=== PATIENT | male | born 1970 | race Caucasian/White ===

== ENCOUNTER 2017-09-08 13:16 | Emergency (ER) | payer MEDICARE, MEDICAID ==
[2017-09-08 15:21] LABS: ABS Basophils 0.1 10^3/ul (0-0.2); ABS Eosinophils 0.3 10^3/ul (0-0.6); ABS Lymphocytes 2.2 10^3/ul (1.0-4.8); ABS Monocytes 0.8 10^3/ul (0-0.8); ABS Neutrophils 3.6 10^3/ul (1.5-7.7); ABS Nucleated RBC 0 10^3/ul; Eosinophil % 4.5 % (0-6); Hematocrit 45 % (42-52); Hemoglobin 15.3 g/dl (14.0-18.0); Lymphocyte % 31.9 % (25-47); Mean Corpuscular HGB Conc 34 g/dl (31-36); Mean Corpuscular Hemoglobin 31 pg (27-31); Mean Corpuscular Volume 90 fL (80-94); Mean Platelet Volume 7 um3 (7.4-10.4); Nucleated Red Blood Cells % 0; Platelet Count 237 10^3/ul (150-450); Red Cell Distribution Width 14 % (10.5-15); White Blood Count 6.9 10^3/ul (3.5-10.8)
[2017-09-08 15:29] LABS: INR 0.8 (0.77-1.02)
[2017-09-08 15:35] LABS: EGFR Non-African American 107.6 (>60)
--- NOTE | 2017-09-08 18:05 | RAD ---
INDICATION: Pain and swelling. COMPARISON: None TECHNIQUE: Duplex interrogation of the left upperextremity was performed. FINDINGS: Deep veins: The visualized jugular, subclavian, axillary, brachial, radial, and ulnar veins are patent. There is normal compressibility, augmentation, and phasic flow. Superficial veins: The basilic and cephalic veins are patent There are no findings of superficial thrombophlebitis. Soft tissues:There are no soft tissue abnormalities. IMPRESSION: Normal examination. No evidence of deep venous thrombosis
[2017-09-08] MEDS ORDERED: traMADol TAB* 50 MG PO ONE (18:21)
[2017-09-08 18:50] VITALS: BP 140/83
--- NOTE | 2017-09-08 22:11 | ED ---
Kenya Thorne Thomas, scribed for Sadiq Barnes MD on 09/08/17 at 1721 . Lower Extremity - HPI Summary HPI Summary: The patient is a 46 year old male complaining of bilateral swelling and pain in the lower extremities. His friend is present in the room. - History of Current Complaint Chief Complaint: EDExtremityLower Stated Complaint: POSSIBLE CELLULITIS Time Seen by Provider: 09/08/17 16:12 Hx Obtained From: Patient Onset of Pain: Hours Onset/Duration: Still Present Severity Currently: Moderate Pain Intensity: 10 Pain Scale Used: 0-10 Numeric Timing: Constant Associated Signs And Symptoms: Positive: Swelling, Other - pain in both feet - Allergies/Home Medications Allergies/Adverse Reactions: Allergies Allergy/AdvReac Type Severity Reaction Status Date / Time No Known Allergies Allergy Verified 12/02/13 13:51 PMH/Surg Hx/FS Hx/Imm Hx Endocrine/Hematology History: Reports: Hx Thyroid Disease Denies: Hx Anticoagulant Therapy, Hx Diabetes Cardiovascular History: Denies: Hx Hypertension Respiratory History: Denies: Hx Asthma Psychiatric History: Denies: Hx Eating Disorder Infectious Disease History: No Infectious Disease History: Denies: Hx Hepatitis, Hx Human Immunodeficiency Virus (HIV), Traveled Outside the [place] in Last 30 Days - Family History Known Family History: Positive: Other - Patient does not know his family history - Social History Alcohol Use: Rare Substance Use Type: Reports: None Smoking Status (MU): Current Every Day Smoker Review of Systems Negative: Epistaxis Positive: Edema - bilteral pedal edema, Other - pain in both feet All Other Systems Reviewed And Are Negative: Yes Physical Exam - Summary Physical Exam Summary: Appearance: The patient is well-nourished in no acute distress and in no acute pain. Skin: The skin is warm and dry and skin color reflects adequate perfusion. HEENT: ~The head is normocephalic and atraumatic. The pupils are equal and reactive. The conjunctivae are clear and without drainage. ~Nares are patent and without drainage. ~Mouth reveals moist mucous membranes and the throat is without erythema and exudate. ~The external ears are intact. The ear canals are patent and without drainage. The tympanic membranes are intact. Neck: the neck is supple with full range of motion and non-tender. There are no carotid bruits. ~There is no neck vein distension. Respiratory: Chest is non-tender. ~Lungs are clear to auscultation and breath sounds are symmetrical and equal. Cardiovascular: Heart is regular rate and rhythm. ~There is no murmur or rub auscultated. There is bilateral pedal edema and the left side is worse than the right.~~Pulses are symmetrical and equal. Abdomen: The abdomen is soft and non-tender. ~There are normal bowel sounds heard in all four quadrants and there is no organomegaly palpated. Musculoskeletal: There is no back tenderness noted. ~Extremities are non-tender with full range of motion. ~There is good capillary refill. ~There is no calf tenderness elicited. There are open sores on both feet. Neurological: Patient is alert and oriented to person, place and time. ~The patient has symmetrical motor strength in all four extremities. ~Cranial nerves are grossly intact. Deep tendon reflexes are symmetrical and equal in all four extremities. Psychiatric: The patient has an appropriate affect and does not exhibit any anxiety or depression. Triage Information Reviewed: Yes Vital Signs On Initial Exam: Initial Vitals Temp Pulse Resp BP Pulse Ox 98.9 F 88 16 145/90 100 09/08/17 13:23 09/08/17 13:23 09/08/17 13:23 09/08/17 13:23 09/08/17 13:23 Vital Signs Reviewed: Yes Diagnostics - Vital Signs Vital Signs Temp Pulse Resp BP Pulse Ox 09/08/17 13:23 98.9 F 88 16 145/90 100 - Laboratory Lab Results: Lab Results 09/08/17 09/08/17 09/08/17 Range/Units 15:00 15:00 15:00 WBC 6.9 (3.5-10.8) 10^3/ul RBC 5.00 (4.0-5.4) 10^6/ul Hgb 15.3 (14.0-18.0) g/dl Hct 45 (42-52) % MCV 90 (80-94) fL MCH 31 (27-31) pg MCHC 34 (31-36) g/dl RDW 14 (10.5-15) % Plt Count 237 (150-450) 10^3/ul MPV 7 L (7.4-10.4) um3 Neut % (Auto) 51.3 (38-83) % Lymph % (Auto) 31.9 (25-47) % [place] % (Auto) 11.3 H (1-9) % Eos % (Auto) 4.5 (0-6) % Baso % (Auto) 1.0 (0-2) % Absolute Neuts (auto) 3.6 (1.5-7.7) 10^3/ul Absolute Lymphs (auto) 2.2 (1.0-4.8) 10^3/ul Absolute Monos (auto) 0.8 (0-0.8) 10^3/ul Absolute Eos (auto) 0.3 (0-0.6) 10^3/ul Absolute Basos (auto) 0.1 (0-0.2) 10^3/ul Absolute Nucleated RBC 0 10^3/ul Nucleated RBC % 0 INR (Anticoag Therapy) 0.80 (0.77-1.02) Sodium 132 L (133-145) mmol/L Potassium 4.3 (3.5-5.0) mmol/L Chloride 98 L (101-111) mmol/L Carbon Dioxide 30 (22-32) mmol/L Anion Gap 4 (2-11) mmol/L BUN 16 (6-24) mg/dL Creatinine 0.78 (0.67-1.17) mg/dL Est GFR ( Amer) 138.4 (>60) Est GFR (Non-Af Amer) 107.6 (>60) BUN/Creatinine Ratio 20.5 H (8-20) Glucose 85 (70-100) mg/dL Lactic Acid (0.5-2.0) mmol/L Calcium 9.3 (8.6-10.3) mg/dL Magnesium 2.2 (1.9-2.7) mg/dL Total Bilirubin 0.40 (0.2-1.0) mg/dL AST 21 (13-39) U/L ALT 31 (7-52) U/L Alkaline Phosphatase 74 (34-104) U/L C-Reactive Protein 2.37 (< 5.00) mg/L Total Protein 7.0 (6.4-8.9) g/dL Albumin 4.4 (3.2-5.2) g/dL Globulin 2.6 (2-4) g/dL Albumin/Globulin Ratio 1.7 (1-3) 09/08/17 Range/Units 15:00 WBC (3.5-10.8) 10^3/ul RBC (4.0-5.4) 10^6/ul Hgb (14.0-18.0) g/dl Hct (42-52) % MCV (80-94) fL MCH (27-31) pg MCHC (31-36) g/dl RDW (10.5-15) % Plt Count (150-450) 10^3/ul MPV (7.4-10.4) um3 Neut % (Auto) (38-83) % Lymph % (Auto) (25-47) % [place] % (Auto) (1-9) % Eos % (Auto) (0-6) % Baso % (Auto) (0-2) % Absolute Neuts (auto) (1.5-7.7) 10^3/ul Absolute Lymphs (auto) (1.0-4.8) 10^3/ul Absolute Monos (auto) (0-0.8) 10^3/ul Absolute Eos (auto) (0-0.6) 10^3/ul Absolute Basos (auto) (0-0.2) 10^3/ul Absolute Nucleated RBC 10^3/ul Nucleated RBC % INR (Anticoag Therapy) (0.77-1.02) Sodium (133-145) mmol/L Potassium (3.5-5.0) mmol/L Chloride (101-111) mmol/L Carbon Dioxide (22-32) mmol/L Anion Gap (2-11) mmol/L BUN (6-24) mg/dL Creatinine (0.67-1.17) mg/dL Est GFR ( Amer) (>60) Est GFR (Non-Af Amer) (>60) BUN/Creatinine Ratio (8-20) Glucose (70-100) mg/dL Lactic Acid 0.7 (0.5-2.0) mmol/L Calcium (8.6-10.3) mg/dL Magnesium (1.9-2.7) mg/dL Total Bilirubin (0.2-1.0) mg/dL AST (13-39) U/L ALT (7-52) U/L Alkaline Phosphatase (34-104) U/L C-Reactive Protein (< 5.00) mg/L Total Protein (6.4-8.9) g/dL Albumin (3.2-5.2) g/dL Globulin (2-4) g/dL Albumin/Globulin Ratio (1-3) Result Diagrams: 09/08/17 15:00 09/08/17 15:00 Lab Statement: Any lab studies that have been ordered have been reviewed, and results considered in the medical decision making process. - Additional Comments Diagnostic Additional Comments: Ultrasound of Left Lower Extremity Interpreted by radiologist. Impression: Normal examination. No evidence of deep venous thrombosis Dr. Barnes has reviewed this report Lower Extremity Course/Dx - Course Course Of Treatment: Mr. New presented and it is clear that he is not taking very good care of his feet. His W/U is OK and I think he is safe to go back to [place] but he will likely need some help. - Diagnoses Provider Diagnoses: Peripheral edema Discharge - Discharge Plan Condition: Stable Disposition: HOME Prescriptions: traMADol TAB* [Ultram*] 50 mg PO Q6HR PRN #20 tab MDD 4 PRN Reason: Pain Patient Education Materials: Chronic Wound Care (ED), Leg Edema (ED) Referrals: Lnai Smalls NP [Primary Care Provider] - 3 Days Additional Instructions: Follow up with your primary care physician in three days. Return to the emergency department for any new or worsening symptoms. The documentation as recorded by the Kenya serrato Thomas accurately reflects the service I personally performed and the decisions made by me, Sadiq Barnes MD.
== END 2017-09-08 18:49 | disposition home or self-care (01) ==
LOC: ED 13:16
DX: R60.9 Edema, unspecified (principal); F17.200 Nicotine dependence, unspecified, uncomplicated
CPT/HCPCS: 36415; 80053; 83605; 83735; 85025; 85610; 86140; 87040; 99283; A9270-GY

== ENCOUNTER 2018-03-08 22:14 | Emergency (ER) | payer MEDICARE, MEDICAID ==
[2018-03-08] MEDS ORDERED: Penicillin VK TAB* 250 MG PO ONE (23:14)
[2018-03-08] MEDS ORDERED: Acetaminophen TAB* 325 MG PO ONE (23:14)
--- NOTE | 2018-03-08 23:19 | ED ---
Throat Pain/Nasal Congestion - HPI Summary HPI Summary: 47-year-old male presents with dental pain for the past day. He states that he has pain in his right lower jaw. He states it radiates up to his side of his face. He denies any fevers. No pain or swelling around the eyes. No chest pain shortness breath. He states that taking ibuprofen with some relief. He does not currently have a dentist. He was on blood pressure medication but is not taking any more. - History of Current Complaint Chief Complaint: EDDentalPain Time Seen by Provider: 03/08/18 22:51 - Allergies/Home Medications Allergies/Adverse Reactions: Allergies Allergy/AdvReac Type Severity Reaction Status Date / Time No Known Allergies Allergy Verified 03/08/18 22:18 PMH/Surg Hx/FS Hx/Imm Hx Endocrine/Hematology History: Reports: Hx Thyroid Disease Denies: Hx Anticoagulant Therapy, Hx Diabetes Cardiovascular History: Denies: Hx Hypertension Respiratory History: Denies: Hx Asthma Psychiatric History: Denies: Hx Eating Disorder Infectious Disease History: No Infectious Disease History: Denies: Hx Hepatitis, Hx Human Immunodeficiency Virus (HIV), Traveled Outside the in Last 30 Days - Family History Known Family History: Positive: Other - Patient does not know his family history - Social History Alcohol Use: Rare Substance Use Type: Reports: None Smoking Status (MU): Current Every Day Smoker Review of Systems Negative: Fever Positive: Dental Pain Negative: Chest Pain Negative: Shortness Of Breath All Other Systems Reviewed And Are Negative: Yes Physical Exam Triage Information Reviewed: Yes Vital Signs On Initial Exam: Initial Vitals Temp Pulse Resp BP Pulse Ox 99.3 F 74 18 158/101 97 03/08/18 22:15 03/08/18 22:15 03/08/18 22:15 03/08/18 22:15 03/08/18 22:15 Vital Signs Reviewed: Yes Appearance: Positive: Well-Appearing Skin: Positive: Warm, Dry Head/Face: Positive: Normal Head/Face Inspection Eyes: Positive: Normal, EOMI, WESTLEY, Conjunctiva Clear ENT: Positive: Pharynx normal, TMs normal Dental: Positive: Percussion Tenderness @ - 32 with erythema, Gross Decay/ Caries @ - 32. Negative: Abscess @ Neck: Positive: Supple, Nontender, No Lymphadenopathy Respiratory/Lung Sounds: Positive: Clear to Auscultation, Breath Sounds Present Cardiovascular: Positive: Normal, RRR Abdomen Description: Positive: Nontender, Soft Bowel Sounds: Positive: Present Musculoskeletal: Positive: Normal Neurological: Positive: Normal Psychiatric: Positive: Normal Diagnostics - Vital Signs Vital Signs Temp Pulse Resp BP Pulse Ox 03/08/18 22:15 99.3 F 74 18 158/101 97 - Laboratory Lab Statement: Any lab studies that have been ordered have been reviewed, and results considered in the medical decision making process. EENT Course/Dx - Course Course Of Treatment: 47-year-old male presents with dental pain for the past day. He states that he has pain in his right lower jaw. He states it radiates up to his side of his face. He denies any fevers. No pain or swelling around the eyes. No chest pain shortness breath. He states that taking ibuprofen with some relief. He does not currently have a dentist. He was on blood pressure medication but is not taking any more. On exam has tenderness to tooth 32. Has some erythema there were no abscess noted. Will treat with penicillin. We will give Tylenol for pain. will restart blood pressure meds and have follow up with primary. Patient understands agrees plan. - Differential Diagnoses Differential Diagnoses: Dental Abscess, Dental Caries, Fractured Tooth - Diagnoses Provider Diagnoses: Dental infection, Hypertension Discharge - Sign-Out/Discharge Documenting (check all that apply): Patient Departure - Discharge Plan Condition: Good Disposition: HOME Prescriptions: Acetaminophen TAB* [Tylenol TAB*] 650 mg PO Q6H PRN #20 tab PRN Reason: Pain Hydrochlorothiazide TAB* [Hydrodiuril TAB*] 25 mg PO DAILY #14 tab Penicillin VK TAB* [Penicillin VK 250 mg Tab*] 500 mg PO QID #27 tab Patient Education Materials: Toothache (ED) Referrals: Lani Smalls NP [Primary Care Provider] - Additional Instructions: Take antibiotics: 4 times a day for 7 days, first dose given in ED Use ibuprofen or tyenlol every 6 hours Avoid hard, crunchy food until seen by dentist Follow up with dentist as soon as possible Return to ED if develop fever, shortness of breath, pain with eye movement or swelling around eye - Billing Disposition and Condition Condition: GOOD Disposition: Home Images - Images Dental: 1 - pain
[2018-03-08] MEDS ORDERED: Hydrochlorothiazide TAB* 50 MG PO ONE (23:47)
[2018-03-08] MEDS ORDERED: Hydrochlorothiazide TAB* 25 MG ONE (23:49)
[2018-03-09 01:06] VITALS: BP 147/91
== END 2018-03-09 01:04 | disposition home or self-care (01) ==
LOC: ED 22:14
DX: K04.7 Periapical abscess without sinus (principal); I10 Essential (primary) hypertension; F17.200 Nicotine dependence, unspecified, uncomplicated
CPT/HCPCS: 99283; A9270-GY

== ENCOUNTER 2018-04-08 21:21 | Emergency (ER) | payer MEDICARE, MEDICAID ==
--- NOTE | 2018-04-08 23:42 | ED ---
Lower Extremity - HPI Summary HPI Summary: Patient is a 47-year-old male from [facility] presenting to the ED with left lower extremity "heaviness and swelling." He states he was seen by his PCP a few months ago and an ultrasound was obtained at the time which was negative for a DVT. He states he returned today as he told the staff of his issue and per protocol, needed to be evaluated. He denies any shortness of breath, chest pain. Denies any hip pain or knee pain. 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 - History of Current Complaint Chief Complaint: EDExtremityLower Stated Complaint: LT LEG SWELLIN/PAIN Time Seen by Provider: 04/08/18 21:30 Hx Obtained From: Patient Onset/Duration: Still Present - over several months Pain Intensity: 3 Pain Scale Used: 0-10 Numeric Timing: Constant Location: Is Discrete @ - left lower extremity BTK Associated Signs And Symptoms: Positive: Swelling. Negative: Redness, Bruising , Weakness, Dizziness Aggravating Factor(s): Standing, Ambulation Alleviating Factor(s): Rest Able to Bear Weight: No - Risk Factors Gout Risk Factors: Negative DVT Risk Factors: Negative Septic Arthritis Risk Factor: Negative - Allergies/Home Medications Allergies/Adverse Reactions: Allergies Allergy/AdvReac Type Severity Reaction Status Date / Time No Known Allergies Allergy Verified 04/08/18 21:27 PMH/Surg Hx/FS Hx/Imm Hx Previously Healthy: Yes Endocrine/Hematology History: Reports: Hx Thyroid Disease Denies: Hx Anticoagulant Therapy, Hx Diabetes Cardiovascular History: Denies: Hx Hypertension Respiratory History: Denies: Hx Asthma Psychiatric History: Denies: Hx Eating Disorder - Immunization History Hx Pertussis Vaccination: No Immunizations Up to Date: Yes Infectious Disease History: No Infectious Disease History: Denies: Hx Hepatitis, Hx Human Immunodeficiency Virus (HIV), Traveled Outside the [place] in Last 30 Days - Family History Known Family History: Positive: Other - Patient does not know his family history - Social History Occupation: Unemployed Lives: Assisted Living Alcohol Use: Rare Hx Substance Use: No Substance Use Type: Reports: None Hx Tobacco Use: Yes Smoking Status (MU): Current Every Day Smoker Review of Systems Constitutional: Negative Negative: Fever, Chills, Fatigue, Skin Diaphoresis Negative: Palpitations, Chest Pain Negative: Shortness Of Breath, Cough Genitourinary: Negative Positive: no symptoms reported, see HPI Positive: Edema - left lower extremity BTK. Negative: Arthralgia, Myalgia Neurological: Negative All Other Systems Reviewed And Are Negative: Yes Physical Exam Triage Information Reviewed: Yes Vital Signs On Initial Exam: Initial Vitals Temp Pulse Resp BP Pulse Ox 98.2 F 67 18 135/95 98 04/08/18 21:23 04/08/18 21:23 04/08/18 21:23 04/08/18 21:23 04/08/18 21:23 Vital Signs Reviewed: Yes Appearance: Positive: Well-Appearing, Well-Nourished Skin: Positive: Warm, Skin Color Reflects Adequate Perfusion Head/Face: Positive: Normal Head/Face Inspection Neck: Positive: Supple, No Lymphadenopathy Respiratory/Lung Sounds: Positive: Clear to Auscultation, Breath Sounds Present Cardiovascular: Positive: RRR, Pulses are Symmetrical in both Upper and Lower Extremities Musculoskeletal: Positive: Strength/ROM Intact, Edema Left - left lower extremity BTK Neurological: Positive: Speech Normal Psychiatric: Positive: Normal, Affect/Mood Appropriate AVPU Assessment: Alert Diagnostics - Vital Signs Vital Signs Temp Pulse Resp BP Pulse Ox 04/08/18 21:23 98.2 F 67 18 135/95 98 - Laboratory Lab Statement: Any lab studies that have been ordered have been reviewed, and results considered in the medical decision making process. Lower Extremity Course/Dx - Course Course Of Treatment: During the course treatment, patient is evaluated for left lower extremity swelling. He states the swelling has been present 6 or 7 months and he has been seen by his PCP regarding this issue. The swelling is constant, not worse or better at a specific time of day. He endorses intermittent pain. He remains ambulatory. As he was recently seen by his PCP and ruled out a DVT through ultrasound, we will not order another ultrasound on this date. On physical examination, left lower extremity appears to be larger than the right. No erythema, ecchymosis, no warmth or palpable cord. Patient denies any recent travel. Denies any chest pain or SOB. Denies any other concerns on this date. - Diagnoses Provider Diagnoses: Swelling of left lower extremity Discharge - Sign-Out/Discharge Documenting (check all that apply): Patient Departure - Discharge Plan Condition: Stable Disposition: HOME Referrals: Lani Smalls NP [Primary Care Provider] - Additional Instructions: Please follow up with your PCP Call tomorrow for an appt - Billing Disposition and Condition Condition: STABLE Disposition: Home
[2018-04-09 00:33] VITALS: BP 143/84
== END 2018-04-08 23:47 | disposition home or self-care (01) ==
LOC: ED 21:21
DX: R22.42 Localized swelling, mass and lump, left lower limb (principal); F17.200 Nicotine dependence, unspecified, uncomplicated
CPT/HCPCS: 99282

== ENCOUNTER 2018-10-17 11:51 | Emergency (ER) | payer MEDICARE, MEDICAID ==
[2018-10-17 12:01] VITALS: BP 139/101
--- NOTE | 2018-10-17 12:37 | UC ---
Complaint Male HPI - HPI Summary HPI Summary: 1 day of decreased urine stream---no pain fever, burning,or back pain--patient is concerned as he had this happen before and he had a uti - History of Current Complaint Chief Complaint: UCGU Stated Complaint: URINARY ISSUE Time Seen by Provider: 10/17/18 12:27 Hx Obtained From: Patient Onset/Duration: Sudden Onset, Lasting Days - 1, Still Present Timing: Constant Pain Intensity: 0 Pain Scale Used: 0-10 Numeric Location: None Associated Signs And Symptoms: Positive: Negative - Allergies/Home Medications Allergies/Adverse Reactions: Allergies Allergy/AdvReac Type Severity Reaction Status Date / Time No Known Allergies Allergy Verified 10/17/18 12:01 PMH/Surg Hx/FS Hx/Imm Hx Previously Healthy: No Endocrine History: Hypothyroidism Cardiovascular History: Hypertension Psychological History: Bipolar Disorder Other History Of: Negative For: Anticoagulant Therapy - Surgical History Surgical History: Yes Surgery Procedure, Year, and Place: eyes, wisdom teeth - Family History Known Family History: Positive: Unknown, Other - Patient does not know his family history - Social History Occupation: Disabled Lives: Assisted Living Alcohol Use: Rare Substance Use Type: None Smoking Status (MU): Current Every Day Smoker Household Exposure Type: Pipe Review of Systems All Other Systems Reviewed And Are Negative: Yes Constitutional: Positive: Negative Skin: Positive: Negative Eyes: Positive: Negative ENT: Positive: Negative Respiratory: Positive: Negative Cardiovascular: Positive: Negative Gastrointestinal: Positive: Negative Genitourinary: Positive: Other - decreased urinary stream Motor: Positive: Negative Neurovascular: Positive: Negative Musculoskeletal: Positive: Negative Neurological: Positive: Negative Psychological: Positive: Negative Is Patient Immunocompromised?: No Physical Exam Triage Information Reviewed: Yes Appearance: Well-Appearing, No Pain Distress, Obese Vital Signs: Initial Vital Signs Temp 97.6 F 10/17/18 11:57 Pulse 78 10/17/18 11:57 Resp 17 10/17/18 11:57 BP 139/101 10/17/18 11:57 Pulse Ox 99 10/17/18 11:57 Vital Signs Reviewed: Yes Eye Exam: Normal Eyes: Positive: Conjunctiva Clear ENT Exam: Normal ENT: Positive: Normal ENT inspection, Hearing grossly normal. Negative: Nasal congestion, Nasal drainage, Trismus, Muffled voice, Hoarse voice Dental Exam: Normal Neck exam: Normal Neck: Positive: Supple, Nontender Respiratory Exam: Normal Respiratory: Positive: Chest non-tender, No respiratory distress, No accessory muscle use Cardiovascular Exam: Normal Cardiovascular: Positive: RRR, Pulses Normal, Brisk Capillary Refill Abdominal Exam: Normal Abdomen Description: Positive: Nontender, No Organomegaly, Soft. Negative: CVA Tenderness (R), CVA Tenderness (L), Distended, McBurney's Point Tenderness, Peritoneal Signs Bowel Sounds: Positive: Present Musculoskeletal Exam: Normal Musculoskeletal: Positive: Strength Intact, ROM Intact, No Edema Neurological Exam: Normal Neurological: Positive: Alert, Muscle Tone Normal Psychological Exam: Normal Skin Exam: Normal Complaint Male Course/Dx - Course Course Of Treatment: increase fluids, follow hypertension and urinary stream concerns with pcp - Differential Dx/Diagnosis Provider Diagnosis: Hypertension, Weak urinary stream Discharge - Sign-Out/Discharge Documenting (check all that apply): Patient Departure All imaging exams completed and their final reports reviewed: No Studies - Discharge Plan Condition: Stable Disposition: HOME Patient Education Materials: Dysuria (ED), Hypertension (ED) Referrals: Lani Smalls NP [Primary Care Provider] - 3 Days - Billing Disposition and Condition Condition: STABLE Disposition: Home - Attestation Statements Provider Attestation: I was available for consult. This patient was seen by the BECCA. The patient was not presented to, seen by, or examined by me. -Alan
== END 2018-10-17 12:56 | disposition home or self-care (01) ==
LOC: UCEAST 11:51
DX: I10 Essential (primary) hypertension (principal); R39.12 Poor urinary stream; F17.210 Nicotine dependence, cigarettes, uncomplicated; E03.9 Hypothyroidism, unspecified; F31.9 Bipolar disorder, unspecified; E66.9 Obesity, unspecified
CPT/HCPCS: 81003; 99211; G0463

== ENCOUNTER 2020-12-21 16:00 | Inpatient (IN) ==
[2020-12-21 17:30] LABS: ABS Eosinophils 0.1 10^3/ul (0-0.6); ABS Lymphocytes 1.3 10^3/ul (1.0-4.8); ABS Monocytes 1.1 10^3/ul (0-0.8); ABS Neutrophils 7.9 10^3/ul (1.5-7.7); Eosinophil % 0.5 %; Hematocrit 42 % (42-52); Hemoglobin 14.1 g/dL (14.0-18.0); Lymphocyte % 12.9 %; Mean Corpuscular HGB Conc 33 g/dL (31-36); Mean Corpuscular Hemoglobin 30 pg (27-31); Mean Corpuscular Volume 89 fL (80-94); Platelet Count 274 10^3/uL (150-450); Red Blood Count 4.74 10^6 /uL (4.18-5.48); Red Cell Distribution Width 13 % (10-15); White Blood Count 10.5 10^3/uL (3.5-10.8)
[2020-12-21 17:48] LABS: ALT 402 U/L (7-52); AST 569 U/L (13-39); Albumin 4.2 g/dL (3.2-5.2); Albumin/Globulin Ratio 1.7 (1-3); Alkaline Phosphatase 175 U/L (35-149); Anion Gap 4 mmol/L (2-11); Blood Urea Nitrogen 24 mg/dL (6-24); CO2 Carbon Dioxide 27 mmol/L (22-32); Calcium 9.1 mg/dL (8.6-10.3); Chloride 104 mmol/L (101-111); EGFR African American 53.9 (>60); EGFR Non-African American 44.6 (>60); Globulin 2.5 g/dL (2-4); Glucose 111 mg/dL (70-100); Potassium 4.2 mmol/L (3.5-5.0); Sodium 135 mmol/L (135-145); Total Protein 6.7 g/dL (6.4-8.9)
[2020-12-21 18:09] LABS: Acetaminophen < 15 mcg/mL; Alcohol, S 15 mg/dL (<10); Salicylate < 2.50 mg/dL (<30)
[2020-12-21] MEDS ORDERED: diPHENhydraMINE IV 50 MG/ML 1 ml VIAL (BENADRYL) SLOW PUSH ONE (18:46)
[2020-12-21] MEDS ORDERED: LORazepam 2 mg VIAL 1 ml IV PUSH ONE (18:46)
[2020-12-21] MEDS ORDERED: Lorazepam PYXIS KEY PRN (18:46)
[2020-12-21] MEDS: NS 0.9% 1000 ml BAG 1,000 ML IV SCH ×2 (19:02→19:50)
[2020-12-21 19:49] LABS: C Reactive Protein 3.78 mg/L (<8.01)
[2020-12-21 20:00] LABS: Urine Appearance Cloudy; Urine Bilirubin Negative (Negative); Urine Blood Negative (Negative); Urine Color Yellow; Urine Glucose Negative (Negative); Urine Ketones Negative (Negative); Urine Nitrite Negative (Negative); Urine Protein 1+(30 mg/dL) (Negative); Urine Specific Gravity 1.024 (1.002-1.030); Urine Urobilinogen Positive (Negative)
[2020-12-21 20:03] LABS: Urine Bacteria Absent (Absent); Urine Red Blood Cell Trace(0-2/hpf) (Absent); Urine Squamous Epithelial Cell Present (Absent); Urine White Blood Cell Trace(0-5/hpf) (Absent)
[2020-12-21 20:16] LABS: Urine Benzodiazepine Screen None Detected (None Detect); Urine Cannabinoids Screen Presumptive Positive (None Detect); Urine Opiates Screen None Detected (None Detect)
[2020-12-21] MEDS ORDERED: Iodixanol (CONTRAST) 320 MG/ML 100 ML SDV IV ONE (20:25)
[2020-12-21] MEDS ORDERED: levETIRAcetam 1000MG IVPREMIX 1,000 MG/100 ML BAG IVPB ONE (20:55)
[2020-12-21] MEDS ORDERED: Lactated Ringers 1000 ml BAG 1,000 ML IV ONE (22:57)
[2020-12-22 00:09] LABS: TSH Ultra Thyroid Stim Horm 0.92 mcIU/mL (0.34-5.60)
[2020-12-22] MEDS ORDERED: cefTRIAXone 1 gm/50 mL NS BAG 1 GM/50 ML BAG IVPB SCH (00:30)
[2020-12-22] MEDS: Albuterol/Ipratropium NEB.SOL (2.5/0.5 MG) 3 ML NEB.SOLN INH SCH ×2 (00:44→04:53)
[2020-12-22] MEDS: Enoxaparin 40 MG/0.4 ML SYR SUBCUT SCH ×2 (00:45→20:46)
[2020-12-22] MEDS: Lactulose 30 ml UDC PO SCH ×4 (00:46→20:46)
[2020-12-22 03:20] LABS: Troponin I 0.03 ng/mL (<0.03)
[2020-12-22 05:05] LABS: ABS Eosinophils 0.1 10^3/ul (0-0.6); ABS Lymphocytes 1.4 10^3/ul (1.0-4.8); ABS Monocytes 0.4 10^3/ul (0-0.8); ABS Neutrophils 1.9 10^3/ul (1.5-7.7); Eosinophil % 3.2 %; Hematocrit 48 % (42-52); Hemoglobin 15.6 g/dL (14.0-18.0); Lymphocyte % 35.3 %; Mean Corpuscular HGB Conc 33 g/dL (31-36); Mean Corpuscular Hemoglobin 30 pg (27-31); Mean Corpuscular Volume 91 fL (80-94); Mean Platelet Volume 8.3 fL (7.4-10.4); Nucleated Red Blood Cells % 0.1; Platelet Count 162 10^3/uL (150-450); Red Blood Count 5.22 10^6 /uL (4.18-5.48); Red Cell Distribution Width 14 % (10-15); White Blood Count 3.9 10^3/uL (3.5-10.8)
[2020-12-22 05:27] LABS: Albumin 3.9 g/dL (3.2-5.2); Albumin/Globulin Ratio 1.7 (1-3); Calcium 8.9 mg/dL (8.6-10.3); EGFR African American 82.6 (>60); EGFR Non-African American 68.3 (>60); Globulin 2.3 g/dL (2-4); Total Bilirubin 1.1 mg/dL (0.2-1.0); Total Protein 6.2 g/dL (6.4-8.9)
[2020-12-22 06:42] LABS: Troponin I 0.12 ng/mL (<0.03)
[2020-12-22 06:58] LABS: INR 0.97 (0.82-1.09)
[2020-12-22] MEDS ORDERED: Albuterol/Ipratropium NEB.SOL (2.5/0.5 MG) 3 ML NEB.SOLN INH SCH (07:00)
[2020-12-22] MEDS: DULoxetine DR 60 mg CAP PO SCH (08:40)
[2020-12-22] MEDS: Fluticasone NASAL SPRAY 50MCG 16 gm SPRAY BTL INTRANASAL SCH (08:40)
[2020-12-22] MEDS: Senna TAB 8.6 mg TAB PO SCH ×2 (08:40→20:49)
[2020-12-22] MEDS ORDERED: OXCARBAZEPINE 600 MG PO SCH (09:00)
[2020-12-22] MEDS: Ofloxacin 0.3% (Ear Drop) BTL RIGHT EAR SCH ×2 (11:42→20:47)
[2020-12-22 11:46] LABS: Hepatitis B Surface Antigen Nonreactive (Nonreactive)
[2020-12-22 11:51] LABS: Hepatitis A Ab IgM Negative (Negative); Hepatitis B Core IgM Nonreactive (Nonreactive)
[2020-12-22 12:03] LABS: Hepatitis B Surface Ab Not Immune (Immune); Hepatitis C Antibody Negative (Negative)
[2020-12-22 12:14] LABS: AST 848 U/L (13-39); Albumin 3.9 g/dL (3.2-5.2); Albumin/Globulin Ratio 1.6 (1-3); Alkaline Phosphatase 220 U/L (35-149); Globulin 2.4 g/dL (2-4); Indirect Bilirubin 0.4 mg/dL (0.3-1.0); Total Protein 6.3 g/dL (6.4-8.9)
[2020-12-22 12:18] LABS: Troponin I 0.24 ng/mL (<0.03)
[2020-12-22 12:28] LABS: ALT 1210 U/L (7-52)
[2020-12-22] MEDS ORDERED: Albuterol/Ipratropium NEB.SOL (2.5/0.5 MG) 3 ML NEB.SOLN INH PRN (12:52)
[2020-12-22] MEDS: Nicotine PATCH 14 MG/24 HR PATCH TRANSDERM SCH (15:39)
[2020-12-22 21:31] LABS: Troponin I 0.24 ng/mL (<0.03)
[2020-12-23 07:16] LABS: Albumin 3.6 g/dL (3.2-5.2); Calcium 8.7 mg/dL (8.6-10.3); Potassium 3.6 mmol/L (3.5-5.0); Total Bilirubin 0.9 mg/dL (0.2-1.0)
[2020-12-23 07:22] LABS: EGFR African American 138.2 (>60); EGFR Non-African American 114.2 (>60); Total Protein 5.9 g/dL (6.4-8.9)
[2020-12-23 07:23] LABS: Albumin/Globulin Ratio 1.6 (1-3); Globulin 2.3 g/dL (2-4)
[2020-12-23 08:49] LABS: ABS Basophils 0.1 10^3/ul (0-0.2); ABS Eosinophils 0.3 10^3/ul (0-0.6); ABS Lymphocytes 1.5 10^3/ul (1.0-4.8); ABS Monocytes 0.5 10^3/ul (0-0.8); Eosinophil % 6.7 %; Hematocrit 39 % (42-52); Hemoglobin 13.1 g/dL (14.0-18.0); Lymphocyte % 34.3 %; Mean Corpuscular HGB Conc 34 g/dL (31-36); Mean Corpuscular Hemoglobin 30 pg (27-31); Mean Corpuscular Volume 89 fL (80-94); Mean Platelet Volume 8.2 fL (7.4-10.4); Platelet Count 204 10^3/uL (150-450); Red Blood Count 4.35 10^6 /uL (4.18-5.48); Red Cell Distribution Width 14 % (10-15); White Blood Count 4.4 10^3/uL (3.5-10.8)
[2020-12-23] MEDS ORDERED: Pneumococcal Vac 23-Polyvalent IM ONE (09:00)
[2020-12-23] MEDS: Senna TAB 8.6 mg TAB PO SCH ×2 (11:25→21:28)
[2020-12-23] MEDS: DULoxetine DR 60 mg CAP PO SCH (11:26)
[2020-12-23] MEDS: Ofloxacin 0.3% (Ear Drop) BTL RIGHT EAR SCH ×2 (11:27→21:30)
[2020-12-23] MEDS: Fluticasone NASAL SPRAY 50MCG 16 gm SPRAY BTL INTRANASAL SCH (11:34)
[2020-12-23] MEDS: Nicotine PATCH 14 MG/24 HR PATCH TRANSDERM SCH (11:43)
[2020-12-23] MEDS: Lactulose 30 ml UDC PO SCH (11:43)
[2020-12-23] MEDS: Calcium Polycarbophil 625mg TB PO SCH ×2 (15:03→21:28)
[2020-12-23] MEDS ORDERED: hydrALAZINE 20 mg/ml 1 ML Vial IV IV SLOW PU ONE ×2 (20:40→23:43)
[2020-12-23] MEDS: Enoxaparin 40 MG/0.4 ML SYR SUBCUT SCH (21:29)
[2020-12-23] MEDS ORDERED: Magnesium Hydroxide LIQ 30 ML UDC PO PRN (21:41)
[2020-12-23] MEDS ORDERED: Polyethylene Glycol 3350 17 GM PACKET PO PRN (21:41)
[2020-12-24 07:17] LABS: Hematocrit 43 % (42-52); Hemoglobin 14.4 g/dL (14.0-18.0); Mean Corpuscular HGB Conc 34 g/dL (31-36); Mean Corpuscular Hemoglobin 30 pg (27-31); Mean Corpuscular Volume 89 fL (80-94); Mean Platelet Volume 8.3 fL (7.4-10.4); Platelet Count 226 10^3/uL (150-450); Red Blood Count 4.85 10^6 /uL (4.18-5.48); Red Cell Distribution Width 14 % (10-15); White Blood Count 7.6 10^3/uL (3.5-10.8)
[2020-12-24 07:30] LABS: Albumin 3.8 g/dL (3.2-5.2); Albumin/Globulin Ratio 1.4 (1-3); Calcium 9.6 mg/dL (8.6-10.3); EGFR African American 147.5 (>60); EGFR Non-African American 121.9 (>60); Globulin 2.7 g/dL (2-4); Potassium 3.8 mmol/L (3.5-5.0); Total Bilirubin 0.6 mg/dL (0.2-1.0); Total Protein 6.5 g/dL (6.4-8.9)
[2020-12-24] MEDS: Nicotine PATCH 14 MG/24 HR PATCH TRANSDERM SCH (07:50)
[2020-12-24] MEDS: DULoxetine DR 60 mg CAP PO SCH (07:52)
[2020-12-24] MEDS: Senna TAB 8.6 mg TAB PO SCH ×2 (07:52→22:52)
[2020-12-24] MEDS: Fluticasone NASAL SPRAY 50MCG 16 gm SPRAY BTL INTRANASAL SCH (07:52)
[2020-12-24] MEDS: Calcium Polycarbophil 625mg TB PO SCH ×3 (07:52→22:52)
[2020-12-24] MEDS: Ofloxacin 0.3% (Ear Drop) BTL RIGHT EAR SCH ×2 (07:53→22:56)
[2020-12-24] MEDS: Enoxaparin 40 MG/0.4 ML SYR SUBCUT SCH (22:55)
[2020-12-25 06:13] LABS: Albumin 3.9 g/dL (3.2-5.2); Albumin/Globulin Ratio 1.5 (1-3); Calcium 9.4 mg/dL (8.6-10.3); EGFR African American 112.9 (>60); EGFR Non-African American 93.3 (>60); Globulin 2.6 g/dL (2-4); Potassium 3.8 mmol/L (3.5-5.0); Total Bilirubin 0.5 mg/dL (0.2-1.0); Total Protein 6.5 g/dL (6.4-8.9)
[2020-12-25] MEDS: Senna TAB 8.6 mg TAB PO SCH ×2 (09:29→22:07)
[2020-12-25] MEDS: Calcium Polycarbophil 625mg TB PO SCH ×3 (09:30→22:04)
[2020-12-25] MEDS: DULoxetine DR 60 mg CAP PO SCH (09:31)
[2020-12-25] MEDS: Nicotine PATCH 14 MG/24 HR PATCH TRANSDERM SCH (09:33)
[2020-12-25] MEDS: Fluticasone NASAL SPRAY 50MCG 16 gm SPRAY BTL INTRANASAL SCH (09:33)
[2020-12-25] MEDS: Ofloxacin 0.3% (Ear Drop) BTL RIGHT EAR SCH ×2 (09:36→22:05)
[2020-12-25] MEDS: Enoxaparin 40 MG/0.4 ML SYR SUBCUT SCH (22:06)
[2020-12-26 07:15] LABS: Albumin 3.9 g/dL (3.2-5.2); Albumin/Globulin Ratio 1.4 (1-3); Globulin 2.7 g/dL (2-4); Indirect Bilirubin 0.3 mg/dL (0.3-1.0); Total Bilirubin 0.4 mg/dL (0.2-1.0); Total Protein 6.6 g/dL (6.4-8.9)
[2020-12-26] MEDS: Calcium Polycarbophil 625mg TB PO SCH ×3 (09:08→22:45)
[2020-12-26] MEDS: Senna TAB 8.6 mg TAB PO SCH ×2 (09:08→22:45)
[2020-12-26] MEDS: DULoxetine DR 60 mg CAP PO SCH (09:09)
[2020-12-26] MEDS: Nicotine PATCH 14 MG/24 HR PATCH TRANSDERM SCH (09:09)
[2020-12-26] MEDS: Ofloxacin 0.3% (Ear Drop) BTL RIGHT EAR SCH ×2 (09:10→22:45)
[2020-12-26] MEDS: Fluticasone NASAL SPRAY 50MCG 16 gm SPRAY BTL INTRANASAL SCH (09:10)
[2020-12-26] MEDS: Enoxaparin 40 MG/0.4 ML SYR SUBCUT SCH (22:45)
[2020-12-27 08:19] LABS: Albumin/Globulin Ratio 1.5 (1-3); Globulin 2.7 g/dL (2-4); Total Bilirubin 0.4 mg/dL (0.2-1.0); Total Protein 6.7 g/dL (6.4-8.9)
[2020-12-27] MEDS: Nicotine PATCH 14 MG/24 HR PATCH TRANSDERM SCH (09:11)
[2020-12-27 09:12] LABS: Indirect Bilirubin 0.3 mg/dL (0.3-1.0)
[2020-12-27] MEDS: DULoxetine DR 60 mg CAP PO SCH (09:12)
[2020-12-27] MEDS: Calcium Polycarbophil 625mg TB PO SCH ×3 (09:12→23:23)
[2020-12-27] MEDS: Senna TAB 8.6 mg TAB PO SCH ×2 (09:12→23:23)
[2020-12-27] MEDS: Ofloxacin 0.3% (Ear Drop) BTL RIGHT EAR SCH ×2 (09:14→23:25)
[2020-12-27] MEDS: Fluticasone NASAL SPRAY 50MCG 16 gm SPRAY BTL INTRANASAL SCH (09:14)
[2020-12-27] MEDS: Enoxaparin 40 MG/0.4 ML SYR SUBCUT SCH (23:26)
[2020-12-28] MEDS: DULoxetine DR 60 mg CAP PO SCH (10:02)
[2020-12-28] MEDS: Calcium Polycarbophil 625mg TB PO SCH ×3 (10:02→21:51)
[2020-12-28] MEDS: Senna TAB 8.6 mg TAB PO SCH ×2 (10:06→21:52)
[2020-12-28] MEDS: Fluticasone NASAL SPRAY 50MCG 16 gm SPRAY BTL INTRANASAL SCH (10:07)
[2020-12-28] MEDS: Ofloxacin 0.3% (Ear Drop) BTL RIGHT EAR SCH ×2 (10:07→21:53)
[2020-12-28] MEDS: Nicotine PATCH 14 MG/24 HR PATCH TRANSDERM SCH (10:07)
[2020-12-28] MEDS: Enoxaparin 40 MG/0.4 ML SYR SUBCUT SCH (21:50)
[2020-12-29] MEDS: Calcium Polycarbophil 625mg TB PO SCH ×3 (07:47→22:10)
[2020-12-29] MEDS: DULoxetine DR 60 mg CAP PO SCH (07:48)
[2020-12-29] MEDS: Senna TAB 8.6 mg TAB PO SCH ×2 (07:49→22:12)
[2020-12-29] MEDS: Fluticasone NASAL SPRAY 50MCG 16 gm SPRAY BTL INTRANASAL SCH (07:51)
[2020-12-29] MEDS: Ofloxacin 0.3% (Ear Drop) BTL RIGHT EAR SCH ×2 (07:51→22:38)
[2020-12-29] MEDS: Nicotine PATCH 14 MG/24 HR PATCH TRANSDERM SCH (07:51)
[2020-12-29] MEDS: Enoxaparin 40 MG/0.4 ML SYR SUBCUT SCH (22:38)
[2020-12-30] MEDS: Calcium Polycarbophil 625mg TB PO SCH ×3 (10:54→22:42)
[2020-12-30] MEDS: DULoxetine DR 60 mg CAP PO SCH (10:55)
[2020-12-30] MEDS: Senna TAB 8.6 mg TAB PO SCH ×2 (10:56→22:44)
[2020-12-30] MEDS: Fluticasone NASAL SPRAY 50MCG 16 gm SPRAY BTL INTRANASAL SCH (10:57)
[2020-12-30] MEDS: Ofloxacin 0.3% (Ear Drop) BTL RIGHT EAR SCH ×2 (10:58→22:45)
[2020-12-30] MEDS: Nicotine PATCH 14 MG/24 HR PATCH TRANSDERM SCH (10:58)
[2020-12-30] MEDS: Enoxaparin 40 MG/0.4 ML SYR SUBCUT SCH (22:45)
[2020-12-31] MEDS: Nicotine PATCH 14 MG/24 HR PATCH TRANSDERM SCH (07:22)
[2020-12-31] MEDS: DULoxetine DR 60 mg CAP PO SCH (07:24)
[2020-12-31] MEDS: Senna TAB 8.6 mg TAB PO SCH ×2 (07:25→20:44)
[2020-12-31] MEDS: Fluticasone NASAL SPRAY 50MCG 16 gm SPRAY BTL INTRANASAL SCH (07:28)
[2020-12-31] MEDS: Ofloxacin 0.3% (Ear Drop) BTL RIGHT EAR SCH ×2 (07:28→20:49)
[2020-12-31] MEDS: Calcium Polycarbophil 625mg TB PO SCH ×3 (07:31→20:44)
[2020-12-31] MEDS: Enoxaparin 40 MG/0.4 ML SYR SUBCUT SCH (20:44)
[2021-01-01 08:02] VITALS: BP 155/92
[2021-01-01] MEDS: Nicotine PATCH 14 MG/24 HR PATCH TRANSDERM SCH (08:14)
[2021-01-01] MEDS: DULoxetine DR 60 mg CAP PO SCH (08:15)
[2021-01-01] MEDS: Ofloxacin 0.3% (Ear Drop) BTL RIGHT EAR SCH (08:15)
[2021-01-01] MEDS: Fluticasone NASAL SPRAY 50MCG 16 gm SPRAY BTL INTRANASAL SCH (08:15)
[2021-01-01] MEDS: Calcium Polycarbophil 625mg TB PO SCH (08:15)
[2021-01-01] MEDS: Senna TAB 8.6 mg TAB PO SCH (08:15)
== END 2021-01-01 08:20 | disposition home or self-care (01) | DRG 177 ==
LOC: ED 16:00 → EDHOLD 22:39 → ICU 12-22 03:16 → MEDTELE 12-22 12:56 → MED 12-23 03:50
PROVIDERS: ADMIT Internal Medicine; ATTEND Internal Medicine